=== PATIENT | male | born 1970 | race Caucasian/White ===

== ENCOUNTER 2024-04-08 22:11 | Inpatient (IN) | payer MEDICAID ==
[~2024-04-08] VITALS: Ht 167.6 cm; Wt 74.8 kg
[2024-04-08] MEDS ORDERED: predniSONE 20 MG TABLET ONE (22:27)
[2024-04-08] MEDS ORDERED: BACLOFEN (10 MG) 10 MG TABLET ONE (22:28)
[2024-04-08] MEDS ORDERED: KETOROLAC TROMETHAMINE INJ 30 MG/ML VIAL ONE (22:28)
[2024-04-08] MEDS: KETOROLAC TROMETHAMINE INJ 30 MG/ML VIAL IM ONE (22:38)
[2024-04-08] MEDS: predniSONE 50 MG TABLET PO ONE (22:38)
[2024-04-08] MEDS: BACLOFEN (10 MG) 10 MG TABLET PO ONE (22:38)
[2024-04-09] MEDS ORDERED: MORPHINE SULFATE INJ 4 MG/ML DISP.SYRIN ONE (00:20)
[2024-04-09] MEDS: MORPHINE SULFATE INJ 2 MG/ML DISP.SYRIN IM ONE (00:26)
[2024-04-09] MEDS ORDERED: HYDROMORPHONE 1 MG/1 ML DISP.SYRIN ONE (02:08)
[2024-04-09] MEDS: HYDROMORPHONE 1 MG/1 ML DISP.SYRIN IM ONE (02:16)
[2024-04-09 03:41] LABS: BASOPHILS % (AUTO) 0.3 % (0.0-2.0); EOSINOPHILS % (AUTO) 0.1 % (0.0-6.0); HEMATOCRIT 42 % (39-51); HEMOGLOBIN 14.1 g/dL (13.5-17.5); LYMPHOCYTES # (AUTO) 1.5 K/uL (0.8-4.8); LYMPHOCYTES % (AUTO) 9.8 % (20.0-44.0); MEAN CORPUSCULAR HEMOGLOBIN 31 PG (26.0-33.0); MEAN CORPUSCULAR HGB CONC 34 g/dl (31.0-36.0); MEAN CORPUSCULAR VOLUME 91 fL (80-96); MONOCYTES # (AUTO) 0.4 K/uL (0.1-1.30); MONOCYTES % (AUTO) 2.6 % (2.0-12.0); NEUTROPHILS # (AUTO) 13.5 K/uL (1.8-8.9); NEUTROPHILS % (AUTO) 87.2 % (43.0-81.0); PLATELET COUNT (AUTO) 239 K/uL (150-450); RED BLOOD CELL COUNT(AUTO) 4.61 MIL/uL (4.5-6.0); RED CELL DISTRIBUTION WIDTH 13.3 % (11.5-15.0); WHITE BLOOD COUNT (AUTO) 15.4 K/uL (4.3-11.0)
[2024-04-09 04:00] LABS: CALCIUM, SERUM 8.9 mg/dL (8.5-10.1); CREATININE 0.7 mg/dL (0.6-1.3); POTASSIUM 4.2 mmol/L (3.5-5.1)
[2024-04-09] MEDS ORDERED: MAGNESIUM HYDROXIDE 30 ML UDC PO PRN (04:00)
[2024-04-09] MEDS ORDERED: ACETAMINOPHEN 325 MG TABLET PO PRN (04:00)
[2024-04-09] MEDS ORDERED: ONDANSETRON HCL/PF 4 MG/2 ML VIAL IVP PRN (04:00)
[2024-04-09 04:01] LABS: INR 1.02 (0.91-1.10); PARTIAL THROMBOPLASTIN TIME 22.7 SEC (24.3-34.3); PROTHROMBIN TIME 10.8 SECS (9.2-11.1)
[2024-04-09] MEDS: BACLOFEN (10 MG) 10 MG TABLET PO SCH (05:37)
[2024-04-09 06:40] LABS: MAGNESIUM 2.1 mg/dL (1.8-2.4); PHOSPHORUS 4.2 mg/dL (2.5-4.9)
[2024-04-09 07:30] VITALS: BP 102/67; TEMP 98.1; O2SAT 96
[2024-04-09] MEDS: PANTOPRAZOLE 40 MG TABLET.DR PO SCH (08:06)
[2024-04-09] MEDS: predniSONE 20 MG TABLET PO SCH (08:47)
[2024-04-09] MEDS: HYDROMORPHONE 1 MG/1 ML DISP.SYRIN IV PRN (15:05)
[2024-04-09 16:00] VITALS: BP 122/74; TEMP 97.9; O2SAT 94
[2024-04-09 20:00] VITALS: BP 114/71; TEMP 98.2; O2SAT 95
[2024-04-09 23:34] VITALS: BP 114/71; TEMP 98.2; O2SAT 95
[2024-04-10 08:00] VITALS: BP 126/74; TEMP 98.4; O2SAT 96
[2024-04-10 08:31] LABS: BASOPHILS % (AUTO) 0.3 % (0.0-2.0); EOSINOPHILS # (AUTO) 0.1 K/uL (0.0-0.7); EOSINOPHILS % (AUTO) 0.4 % (0.0-6.0); HEMATOCRIT 41 % (39-51); HEMOGLOBIN 13.9 g/dL (13.5-17.5); LYMPHOCYTES # (AUTO) 4.8 K/uL (0.8-4.8); LYMPHOCYTES % (AUTO) 32.3 % (20.0-44.0); MEAN CORPUSCULAR HEMOGLOBIN 31 PG (26.0-33.0); MEAN CORPUSCULAR HGB CONC 34 g/dl (31.0-36.0); MEAN CORPUSCULAR VOLUME 91 fL (80-96); MONOCYTES # (AUTO) 0.9 K/uL (0.1-1.30); MONOCYTES % (AUTO) 6.4 % (2.0-12.0); NEUTROPHILS # (AUTO) 8.9 K/uL (1.8-8.9); NEUTROPHILS % (AUTO) 60.6 % (43.0-81.0); PLATELET COUNT (AUTO) 243 K/uL (150-450); RED BLOOD CELL COUNT(AUTO) 4.55 MIL/uL (4.5-6.0); RED CELL DISTRIBUTION WIDTH 13.7 % (11.5-15.0); WHITE BLOOD COUNT (AUTO) 14.7 K/uL (4.3-11.0)
[2024-04-10 08:32] LABS: CREATININE 0.7 mg/dL (0.6-1.3); POTASSIUM 3.8 mmol/L (3.5-5.1)
[2024-04-10 16:00] VITALS: BP 121/74; TEMP 98.8; O2SAT 94
[2024-04-10] MEDS: MAG HYDROX/AL HYDROX/SIMETH 30 ML UDC PO PRN (19:30)
[2024-04-10 20:00] VITALS: BP 123/81; TEMP 98.1; O2SAT 95
[2024-04-11 07:20] LABS: CALCIUM, SERUM 9.2 mg/dL (8.5-10.1); CREATININE 0.8 mg/dL (0.6-1.3); POTASSIUM 3.8 mmol/L (3.5-5.1)
[2024-04-11 07:38] LABS: BASOPHILS # (AUTO) 0.1 K/uL (0.0-0.2); BASOPHILS % (AUTO) 0.4 % (0.0-2.0); EOSINOPHILS # (AUTO) 0.1 K/uL (0.0-0.7); EOSINOPHILS % (AUTO) 0.7 % (0.0-6.0); HEMATOCRIT 43 % (39-51); HEMOGLOBIN 14.1 g/dL (13.5-17.5); LYMPHOCYTES # (AUTO) 5.9 K/uL (0.8-4.8); LYMPHOCYTES % (AUTO) 34.8 % (20.0-44.0); MEAN CORPUSCULAR HEMOGLOBIN 30 PG (26.0-33.0); MEAN CORPUSCULAR HGB CONC 33 g/dl (31.0-36.0); MEAN CORPUSCULAR VOLUME 91 fL (80-96); MONOCYTES # (AUTO) 1.3 K/uL (0.1-1.30); MONOCYTES % (AUTO) 7.8 % (2.0-12.0); NEUTROPHILS # (AUTO) 9.6 K/uL (1.8-8.9); NEUTROPHILS % (AUTO) 56.3 % (43.0-81.0); PLATELET COUNT (AUTO) 262 K/uL (150-450); RED CELL DISTRIBUTION WIDTH 13.8 % (11.5-15.0)
[2024-04-11 07:52] LABS: MAGNESIUM 2.3 mg/dL (1.8-2.4); PHOSPHORUS 3.2 mg/dL (2.5-4.9)
[2024-04-11 08:00] VITALS: BP 130/83; TEMP 98.2; O2SAT 97
[2024-04-11] MEDS ORDERED: HYDR-3972 PO (13:12)
[2024-04-11] MEDS ORDERED: PREG50CA PO (13:12)
[2024-04-11] MEDS ORDERED: METH-647 PO (13:12)
[2024-04-11 16:00] VITALS: BP 124/84; TEMP 98.8; O2SAT 96
== END 2024-04-11 17:35 | disposition home or self-care (01) | DRG 347 ==
LOC: ER 22:16 → MED 04-09 04:21
PROVIDERS: ADMIT Student in an Organized Health Care Education/Training Program; ATTEND Nurse Practitioner Family
DX: M51.26 Other intervertebral disc displacement, lumbar region (principal); D72.829 Elevated white blood cell count, unspecified; E78.5 Hyperlipidemia, unspecified; G89.29 Other chronic pain; T38.0X5A Adverse effect of glucocorticoids and synthetic analogues, initial encounter; Y92.009 Unspecified place in unspecified non-institutional (private) residence as the place of occurrence of the external cause
CPT/HCPCS: 36415; 72131-TC; 80048-TC; 83735-TC; 84100-TC; 85025-TC; 85730-TC; 97110-TC; 97116-TC; 97530-TC; G0378; J1171; J1885; J2270